=== PATIENT | male | born 1935 | race Caucasian/White ===

== ENCOUNTER 2023-11-20 21:43 | Inpatient (IN) | payer MEDICARE, SELFPAY ==
[2023-11-20] VITALS (9 sets, daily range): BP systolic 89–143; BP diastolic 43–62
[2023-11-20 19:15] LABS: Glucose - Point of Care 190 mg/dl (70-99)
[2023-11-20] MEDS: OFIRMEV 100 IV (19:16)
[2023-11-20 19:22] LABS: % Basophils 0.2 % (0-2); % Eosinophils 0.3 % (0-6); % Immature Granulocytes 0.4 % (0-0.5); % Lymphocytes 3.6 % (20.5-51.1); % Monocytes 5.3 % (1.7-9.3); % Neutrophils 90.2 % (42.2-75.2); Absolute Immature Granulocytes 0.1 10^3/uL (0-0.05); Absolute Lymphocytes 0.5 10^3/uL (1.2-3.4); Absolute Monocytes 0.7 10^3/uL (0.1-0.6); Absolute Neutrophils 12.6 10^3/uL (1.4-6.5); Hematocrit 39.7 % (39.0-52.0); Mean Corp Hgb Conc. 35.3 g/dL (33.0-37.0); Mean Corpuscular Hgb 32.6 pg (27.0-31.0); Mean Corpuscular Volume 92.5 fL (80.0-94.0); Mean Platelet Volume 9.9 fL (7.4-10.4); Nucleated Red Blood Cells % 0 % (-); Platelet Count 163 10^3/uL (130-400); Red Blood Cell Count 4.29 10^6/uL (4.70-6.10); Red Cell Dist. Width 12.9 % (11.5-14.5); Urine Albumin Negative (Neg - Trace); Urine Bilirubin Negative (Negative); Urine Character Clear (Clear); Urine Color Yellow; Urine Glucose 3+ (Negative); Urine Ketone Negative (Negative); Urine Leukocyte 2+ (Negative); Urine Nitrite Negative (Negative); Urine Occult Blood 2+ (Negative); Urine Urobilinogen Negative (Neg - 1+)
[2023-11-20 19:30] LABS: Urine Squamous Cell 0-2 /LPF (Few)
[2023-11-20 19:31] LABS: Urine Bacteria Many (Negative); Urine Red Blood Cell 16-20 /HPF (0-2); Urine White Cell >100 /HPF (0-5)
[2023-11-20 19:33] LABS: Lactic Acid 3.2 mmol/L (0.7-2.0)
[2023-11-20 19:36] LABS: ALT (SGPT) 19 U/L (0-50); AST (SGOT) 27 U/L (17-59); Albumin 4.1 g/dl (3.5-5.0); Alkaline Phosphatase 116 U/L (38-126); Blood Urea Nitrogen 33 mg/dl (9-20); Calcium 8.9 mg/dl (8.4-10.2); Carbon Dioxide 21 mmol/L (22-30); Chloride 103 mmol/L (98-107); Glucose 175 mg/dl (70-99); Potassium 4.5 mmol/L (3.5-5.1); Sodium 133 mmol/L (135-145); Total Bilirubin 1.1 mg/dl (0.2-1.3); Total Protein 6.7 g/dl (6.3-8.2); eGFR 58.89
[2023-11-20] MEDS: MAXIPIME 1000 MG IV (19:50)
--- NOTE | 2023-11-20 20:57 | ED.GENMED ---
History of Present Illness
General
Chief Complaint: Weakness
Time Seen by Provider: 11/20/23 18:48
Travel History
Have you had any contact with someone who has COVID-19?: Unable to Answer
Do you have any symptoms of coronavirus? Fever > 100 degrees, chills, cough, shortness of breath, sore throat, loss of taste or smell, muscle aches, or headache?: Unable to Answer
History of Present Illness
History of Present Illness:
88-year-old male with history of dementia, coronary disease, and insulin-dependent diabetes presents from [facility] for evaluation of fever and generalized weakness for the past few days. He apparently has a history of recurrent
UTIs. Prior medical care was in [place]. Patient cannot provide any history on arrival due to his dementia.
Review of Systems
Review of Systems
Allergies reviewed?: Yes
All Other Systems: ROS reviewed and negative except as documented in HPI and ROS
Phy Exam
Physical Exam
Physical Exam:
GEN: Ill-appearing, no immediate distress
HEENT: Oral mucosa moist, no scleral icterus
Cardiac: Tachycardic, regular
Lung: No respiratory distress, no tachypnea, lungs clear to auscultation bilaterally
MSK: No gross deformity or injuries
Skin: Good color, no pallor or jaundice, no rashes
Neuro: Alert, follows commands, disoriented to time and place
Psych: Calm, cooperative
Course
Orders/Labs/Results
Orders:
Orders
11/20/23 18:58
Electrocardiogram (*1) Urgent
Reason for Study: Other
Other Reason for Exam: Possible Sepsis
Cardiac Monitoring- Treatment ONCE
IV Insert/Care/Rem.- Treatment PRN
Straight cath- Treatment ONCE
O2 Therapy [RESP] Urgent
Titrate/Wean O2 to maintain O2 sat greater than (%): 93
Special Instructions: TO MAINTAIN CONTINUOUS O2 SATS > OR = 93%
Pulse Ox/cont/shift [RESP] Urgent
Quantity: 1
Special Instructions: CONTINUOUS
11/20/23 18:59
EKG- Treatment ONCE
11/20/23 19:02
Complete Blood Count/With Diff Urgent
Comprehensive Metabolic Panel Urgent
Lactic Acid Q4H
Comment: ON ICE, CANCEL 2ND ORDER IF FIRST LACTIC ACID LEVEL <2
Urinalysis Reflex To Culture Urgent
Date Specimen was Collected: 11/20/23
Time Specimen was Collected: 18:59
Urine Microscopic Reflex Cult Urgent
Blood Culture Q30M
ODETTE Source: Blood/Venous
Specimen Description:
Comment: FROM 2 SEPARATE SITES
Blood Culture Q30M
ODETTE Source: Blood/Venous
Specimen Description:
Comment: FROM 2 SEPARATE SITES
Urine Culture Urgent
ODETTE Source: U
Specimen Description:
Date Specimen was Collected: 11/20/23
Time Specimen was Collected: 18:59
11/20/23 19:09
Acetaminophen 1000MG/100Ml [Ofirmev] 1,000 mg in 100 ml IV ONCE
Acetaminophen IV Indication:: No GA & No Enteral Access
11/20/23 19:35
Cefepime HCl [Maxipime] 1,000 mg IV NOW STA
11/20/23 20:38
CR Chest - 2 Views Urgent
Comment:
Reason For Exam: sepsis
11/20/23 23:00
Lactic Acid Q4H
Comment: ON ICE, CANCEL 2ND ORDER IF FIRST LACTIC ACID LEVEL <2
Abnormal Lab Results
11/20/23 11/20/23
19:02 19:12
WBC 14.0 H 10^3/uL
(4.8-10.8)
RBC 4.29 L 10^6/uL
(4.70-6.10)
MCH 32.6 H pg
(27.0-31.0)
Abs Immat Gran (auto) 0.1 H 10^3/uL
(0-0.05)
Absolute Neuts (auto) 12.6 H 10^3/uL
(1.4-6.5)
Absolute Lymphs (auto) 0.5 L 10^3/uL
(1.2-3.4)
Absolute Monos (auto) 0.7 H 10^3/uL
(0.1-0.6)
Neutrophils % 90.2 H %
(42.2-75.2)
Lymphocytes % 3.6 L %
(20.5-51.1)
Sodium 133 L mmol/L
(135-145)
Carbon Dioxide 21 L mmol/L
(22-30)
BUN 33 H mg/dl
(9-20)
Glucose 175 H mg/dl
(70-99)
Lactic Acid 3.2 H mmol/L
(0.7-2.0)
Ur Occult Blood Reflex 2+ A
(Negative)
Leukocyte Esterase Rfl 2+ A
(Negative)
Urine RBC 16-20 A /HPF
(0-2)
Urine WBC (Reflex) >100 A /HPF
(0-5)
Urine Bacteria (Reflex) Many A
(Negative)
Urine Glucose 3+ A
(Negative)
POC Glucose 190 H mg/dl
(70-99)
11/20/23 19:02
11/20/23 19:02
Vital Signs
Initial and Last Documented VS:
Initial Vital Signs
Temp Pulse Resp BP Pulse Ox
104.7 F H 100 18 130/56 95
11/20/23 18:46 11/20/23 18:46 11/20/23 18:46 11/20/23 18:46 11/20/23 18:46
Last Documented Vital Signs
Temp Pulse Resp BP Pulse Ox
101.2 F H 98 23 133/60 89
11/20/23 19:53 11/20/23 19:45 11/20/23 19:45 11/20/23 19:00 11/20/23 19:45
MDM/Problems Addressed
MDM/Problems Addressed:
88-year-old male presents due to weakness, found to be febrile and tachycardic. Presentation most likely due to sepsis from UTI, given lactic acidosis he is high risk for complicated infection thus will admit for IV antibiotics and further
monitoring. Do not feel there is any indication for imaging given lack of renal failure to suggest urinary obstructive pathology
*Critical Care Note
Total Time (30-74mins, 75-104mins- exclusive of procedures): Not Applicable
ED Attending Note
-
Portions of this chart may have been created with voice recognition software.� Occasional wrong word or��sound alike� substitutions may have occurred due to the inherent limitations of voice recognition software.
Discharge Plan
Departure
Patient Disposition: Admit
Date of Disposition: 11/20/23
Time of Disposition: 21:08
Presentation/result/management discussed w/ accepting MD/DO: Hospitalist
Discharge Problem:
Urinary tract infection
Referrals:
Hannah Gold MD [Family Provider] -
Interventions
Interventions:
*Risk Screen - Suicide Last Done: 11/20/23 18:46
*General Assessment Last Done: 11/20/23 18:46
*Neglect/Abuse Screening Last Done: 11/20/23 18:46
ED- Cardiac Assessment Last Done: 11/20/23 19:24
ED- Neurological Assessment Last Done: 11/20/23 19:24
ED- Pulmonary Assessment Last Done: 11/20/23 19:24
--- NOTE | 2023-11-20 21:25 | HPS.HSE ---
Family Physician
-
Family Physician: Hannah Gold
Chief Complaint
-
fever, weakness
History of Present Illness
88-year-old male past medical history of dementia, coronary artery disease status post CABG, diabetes, recurrent UTIs presents from [facility] for fever and generalized weakness for the past 2 days. Patient denies any urinary symptoms, abdominal
pain, flank pain or back pain, or nausea or vomiting or chest pain or shortness of breath but he is a poor historian due to dementia. His mental status is at baseline currently. No history of kidney stones.
Patient has been hospitalized many times previously for urinary tract infections in [place].
No current smoking or alcohol use.
Medical History
Past Medical History
Past Medical History: Reports Other (dementia, coronary artery disease status post CABG, diabetes, recurrent UTIs)
Past Surgical History: Reports None
Social History
Tobacco: Non-smoker
Alcohol: None
Drug: None
Family History
Family History: Not pertinent
Allergies / Home Medications
Allergies reflects when Allergies were last updated in [employer].
Home Medications with original date entered in [employer]
Allergy/Medication List:
Allergies
Allergy/AdvReac Type Severity Reaction Status Date / Time
No Known Allergies Allergy Unverified 11/20/23 18:54
Home Medications
aspirin 81 mg tablet,delayed release 81 mg PO DAILY 11/20/23
atorvastatin 40 mg tablet 40 mg PO QPM 11/20/23
carvedilol 6.25 mg tablet 6.25 mg PO BID 11/20/23
cholecalciferol (vitamin D3) 50 mcg (2,000 unit) capsule 50 mcg PO DAILY 11/20/23
colesevelam 625 mg tablet 1,250 mg PO BID@0800,1700 11/20/23
empagliflozin 25 mg tablet (Jardiance) 25 mg PO DAILY 11/20/23
ezetimibe 10 mg tablet 10 mg PO DAILY 11/20/23
metformin 500 mg tablet,extended release 24 hr 1,500 mg PO DAILY 11/20/23
tamsulosin 0.4 mg capsule 0.4 mg PO DAILY 11/20/23
Review of Systems
-
History Source: Patient
A 12 point ROS was completed and negative except as noted: Yes
Constitutional: Reports No Symptoms
EENT: Reports No Symptoms
Respiratory: Reports No Symptoms
Cardiac: Reports No Symptoms
Abdomen/GI: Reports No Symptoms
: Reports No Symptoms
Musculoskeletal: Reports No Symptoms
Skin: Reports No Symptoms
Neurological: Reports No Symptoms
Endocrine: Reports No Symptoms
Hematologic/Lymphatic: Reports No Symptoms
Psych: Reports No Symptoms
Physical Exam
Vital Signs
Vital Signs
Temp Pulse Resp BP Pulse Ox
101.2 F H 67 21 99/49 94
11/20/23 19:53 11/20/23 21:00 11/20/23 21:00 11/20/23 21:00 11/20/23 21:00
Physical Exam
General: Well Developed, Well Nourished and No Apparent Distress
HEENT: NormoCephalic, Moist mucous membranes and Atraumatic
Respiratory: Clear
Cardiac: S1/S2 and Regular Rhythm; No Murmur or Rub
GI: Soft, Non Tender, Non Distended and Normal Bowel Sounds; No Organomegaly
Rectal: Deferred by Provider
Musculoskeletal: No Clubbing, No Cyanosis and No Edema
Skin: No Rash
Neuro: Nonfocal/grossly intact
Laboratory Results
-
11/20/23 19:02
11/20/23 19:02
Laboratory Results
Lactic Acid 3.2 mmol/L (0.7-2.0) H 11/20/23 19:02
Total Bilirubin 1.1 mg/dl (0.2-1.3) 11/20/23 19:02
AST 27 U/L (17-59) 11/20/23 19:02
ALT 19 U/L (0-50) 11/20/23 19:02
Alkaline Phosphatase 116 U/L (38-126) 11/20/23 19:02
Data Reviewed
-
Lab Data: Labs Reviewed by me
Old Records: Reviewed
Impression/Plan
-
IMPRESSION:
PLAN:
# Sepsis (fever, tachycardia, tachypnea, leukocytosis) secondary to urinary tract infection
# History of recurrent UTIs
-Blood pressure 90s systolic now
-Urinalysis clearly positive for infection
-IV fluids
-Check urine culture, blood cultures
-Cefepime
History of dementia
-baseline mental status
Coronary artery disease status post CABG
-Continue aspirin, statin
-Continue Coreg
Type 2 diabetes
-Hold metformin, Jardiance
-Insulin sliding scale
Hypercholesterolemia
-Continue statin, Zetia, colesevelam
BPH
-Continue tamsulosin
Full code
DVT prophylaxis�heparin
Diabetic diet
[2023-11-20] MEDS: NSS 1000 IV (23:23)
[2023-11-21] VITALS (14 sets, daily range): BP systolic 82–123; BP diastolic 34–69; PULSE 50; O2SAT 98; BMI 24.7
[2023-11-21] MEDS: NSS 500 IV (00:46)
[2023-11-21 01:12] LABS: Lactic Acid 1.4 mmol/L (0.7-2.0)
[2023-11-21] MEDS: MAXIPIME 2000 MG IV ×2 (01:27→13:24)
[2023-11-21] MEDS: STERILE WATER FOR INJECTION 10 ML IV ×2 (01:27→13:25)
[2023-11-21] MEDS: NSS 1000 IV ×3 (01:27→20:45)
--- NOTE | 2023-11-21 02:54 | PTCARENOTE ---
Received pt from ED RN. Pt is AAOx1 (self), confused/forgetful, [place]. Sinus monty/NSR on the monitor. On RA O2 sat 94%, lungs clear. BRPx1, attends in place for incont @ times. MASD in the groin. NS infusing @ 100 ml/hr. CHG bath provided. Son @
bedside. Pt is laying comfortable in bed with call aragon in reach.
[2023-11-21 05:31] LABS: % Basophils 0.3 % (0-2); % Eosinophils 0.4 % (0-6); % Immature Granulocytes 0.6 % (0-0.5); % Lymphocytes 6.7 % (20.5-51.1); % Monocytes 6.4 % (1.7-9.3); % Neutrophils 85.6 % (42.2-75.2); Absolute Immature Granulocytes 0.1 10^3/uL (0-0.05); Absolute Lymphocytes 0.7 10^3/uL (1.2-3.4); Absolute Monocytes 0.7 10^3/uL (0.1-0.6); Absolute Neutrophils 9.2 10^3/uL (1.4-6.5); Hematocrit 39.3 % (39.0-52.0); Hemoglobin 13.2 g/dL (13.0-18.0); Mean Corp Hgb Conc. 33.6 g/dL (33.0-37.0); Mean Corpuscular Hgb 32.4 pg (27.0-31.0); Mean Corpuscular Volume 96.3 fL (80.0-94.0); Mean Platelet Volume 9.9 fL (7.4-10.4); Nucleated Red Blood Cells % 0 % (-); Platelet Count 149 10^3/uL (130-400); Red Blood Cell Count 4.08 10^6/uL (4.70-6.10); Red Cell Dist. Width 13.1 % (11.5-14.5); White Blood Cell Count 10.8 10^3/uL (4.8-10.8)
[2023-11-21 05:54] LABS: ALT (SGPT) 18 U/L (0-50); AST (SGOT) 28 U/L (17-59); Albumin 3.2 g/dl (3.5-5.0); Alkaline Phosphatase 95 U/L (38-126); Blood Urea Nitrogen 31 mg/dl (9-20); Calcium 8.2 mg/dl (8.4-10.2); Carbon Dioxide 22 mmol/L (22-30); Chloride 106 mmol/L (98-107); Estimated Creatinine Clearance 46 ml/min; Glucose 136 mg/dl (70-99); Potassium 3.7 mmol/L (3.5-5.1); Sodium 136 mmol/L (135-145); Total Bilirubin 0.9 mg/dl (0.2-1.3); Total Protein 5.7 g/dl (6.3-8.2); eGFR > 60.00
--- NOTE | 2023-11-21 07:20 | W.PN.HOSP.TC ---
Today's Communication/Plan
-
Will await culture results
Has already responded to IV antibiotic and fluids
If leukocytosis remains stable and clinical status improved by tomorrow consideration for discharge plan on outpatient course of antibiotic
Can resume Jardiance continue to hold metformin for now
Assessment / Plan
Assessment / Plan
88-year-old male past medical history of dementia, coronary artery disease status post CABG, diabetes, recurrent UTIs presents from [facility] for fever and generalized weakness for the past 2 days.� Patient denies any urinary symptoms, abdominal
pain, flank pain or back pain, or nausea or vomiting or� chest pain or shortness of breath but he is a poor historian due to dementia.� His mental status is at baseline currently.� No history of kidney stones.
Patient has been hospitalized many times previously for urinary tract infections in [place].
No current smoking or alcohol use.
I obtained further history from son who slept in room overnight
# Sepsis (fever, tachycardia, tachypnea, leukocytosis, lactic acidosis) secondary to urinary tract infection
# History of recurrent UTIs
-Blood pressure 90s systolic now
-Urinalysis clearly positive for infection
-IV fluids/lactic acidosis resolved
-Check urine culture, blood cultures
-Cefepime
History of dementia
-baseline mental status
Coronary artery disease status post CABG
-Continue aspirin, statin
-Chest x-ray with cardiomegaly and increased pulmonary venous pressures presumed chronic
-Continue Coreg
Type 2 diabetes
-Hold metformin, Jardiance
-Insulin sliding scale
Hypercholesterolemia
-Continue statin, Zetia, colesevelam
BPH
-Continue tamsulosin
Full code
DVT prophylaxis�heparin
Diabetic diet
Anticipated Discharge: Within 24 hours
Subjective/Interval History
-
Date of Service: November 21, 2023
Return from sleep study requested overnight based on history of agitation during hospitalizations in the past but patient presently calm awake and alert no distress
Objective Data
-
Labs:
Laboratory Results
11/20/23 11/21/23
19:02 05:06
WBC 14.0 H 10.8
Hgb 14.0 13.2
Hct 39.7 39.3
Plt Count 163 149
Sodium 133 L 136
Potassium 4.5 3.7
Chloride 103 106
Carbon Dioxide 21 L 22
BUN 33 H 31 H
Creatinine 1.2 1.0
Glucose 175 H 136 H
Calcium 8.9 8.2 L
Total Bilirubin 1.1 0.9
AST 27 28
ALT 19 18
Alkaline Phosphatase 116 95
Vital Signs:
Vital Signs
Temp Pulse Resp BP Pulse Ox
98.2 F 60 20 113/52 96
11/21/23 03:15 11/21/23 06:01 11/21/23 06:01 11/21/23 06:01 11/21/23 06:01
I&O
11/20/23 11/21/23 11/22/23
06:59 06:59 06:59
Intake Total 1010 / 1010
Balance 1010 / 1010
Review of Systems
-
Unable to obtain full review of systems at this time due to: Dementia
History Source: Patient and Family
Constitutional: Reports No Symptoms
EENT: Reports No Symptoms Reported
Respiratory: Reports No Symptoms
Cardiac: Reports No Symptoms
Abdomen/GI: Reports No Symptoms
Genitourinary: Reports No Symptoms and UTI; Denies Dysuria, Frequency or Flank Pain
Physical Exam
-
General: Well Developed
HEENT: Normocephalic
Respiratory: Clear to Auscultation
Cardiac: Regular Rhythm
GI: Soft, Nontender and Nondistended
Skin: Warm
Neuro: Awake, Alert, Oriented and AO x 3
Psych: Calm
Data Reviewed
-
Total Time Spent with Patient (in minutes): 56
Diagnostic Radiology: Report Reviewed by me (Chest x-ray showed mild cardiomegaly with evidence of elevated pulmonary venous pressures possibly on a chronic basis)
Labs: Labs Reviewed by me (Lactic acidosis has resolved now 1.5/white count 10.8 from 14.0)
[2023-11-21 07:42] LABS: Glucose - Point of Care 148 mg/dl (70-99)
[2023-11-21] MEDS: NOVOLOG FLEXPEN-LOW RESISTANCE SC ×2 (08:33→17:40)
[2023-11-21] MEDS: TYLENOL 650 MG PO (08:41)
[2023-11-21 09:49] LABS: Glycohemoglobin (HgbA1c) 10.1 % (4.0-5.6)
[2023-11-21] MEDS: VITAMIN D3 (cholecalciferol) 50 MCG PO (09:49)
[2023-11-21] MEDS: ASPIR LOW (ENTERIC COATED) 81 MG PO (09:49)
[2023-11-21] MEDS: FLOMAX 0.400000000000000022 MG PO (09:51)
[2023-11-21] MEDS: COREG 6.25 MG PO (09:51)
[2023-11-21] MEDS: HEPARIN 5000 UNITS SC ×2 (09:51→20:44)
[2023-11-21] MEDS: ZETIA 10 MG PO (09:51)
[2023-11-21] MEDS: JARDIANCE 25 MG PO (11:21)
[2023-11-21 12:32] LABS: Glucose - Point of Care 243 mg/dl (70-99)
--- NOTE | 2023-11-21 13:14 | CM ---
Patient from [facility] facility with Hx dementia with Dx sepsis. Room air. Receiving IVF, IV cefepime. Per nurse assessment; A/O x1, forgetful.
Met with patient, son Prabhu (home ph only [phone]), grandson Austin and .
The patient stated he was [place] and did not participate in the conversation- his one hearing aide is not functioning.
Prbahu states patient is confused and forgetful at baseline.
Prabhu says has Alzheimers and also did not speak.
The patient resides with his in an apartment at [facility].
He has been independent in ADLs for bathing/dressing and Prabhu states he has poor hygiene.
The patient ambulates without any assistive devices.
The patient has been unsteady on his feet with no recent falls.
He fell 4x in 2022.
Patient's only DME is a motorized wheelchair, as well as hearing aide.
No prior VN or SNF.
Prabhu states that the patient was not taking his medications at home.
The family arranged a FILTER PRESS SUPERVISOR for med reminders which started the day before admission.
Home Services at [facility] is setting up a caregiver 2 hrs/day.
Prabhu and Austin have been watching the patient and at home.
Prabhu says they have a request with [facility] for the patient & to be moved to Assisted Living in a few weeks.
Advised son and grandson that the recommendation for patient's who are confused is 24 hr supervision.
Son tried to get patient's PCP Hannah Gold to agree to submit forms to DMV to revoke the patient's Drivers License however PCP declined to do that as the patient told her he did not agree to it. The battery in the patient's car is and they
are leaving it that way so he cannot drive.
Prabhu agrees to [facility] VN for SN & possibly PT/OT.
Message to Dr Pereira requesting PT/OT Evals.
Prabhu says that the son Yoshi is the point of contact for d/c plans going forward as Yoshi RODRIGES.
Met with [facility] who was here for on-site visit with patient/family.
Plan follow up after seen by PT/OT.
[2023-11-21] MEDS: NOVOLOG FLEXPEN-LOW RESISTANCE 2 UNITS SC (13:25)
[2023-11-21 17:33] LABS: Glucose - Point of Care 135 mg/dl (70-99)
[2023-11-21] MEDS: LIPITOR 40 MG PO (18:26)
[2023-11-21 21:26] LABS: Glucose - Point of Care 271 mg/dl (70-99)
--- NOTE | 2023-11-21 23:10 | PTCARENOTE ---
Pt being transferred to 4W room 425. Report given to MAHENDRA Mendez. All belongings sent with pt and son.
--- NOTE | 2023-11-22 00:10 | PTCARENOTE ---
Patient received from U AAOx1 @2345, confused. Patient ambulated from wheelchair to bed. No complaints at this time. Son at bedside. IVF infusing. Bed alarm set.
[2023-11-22] MEDS: MELATONIN 5 MG PO (00:17)
[2023-11-22] MEDS: MAXIPIME 2000 MG IV ×2 (01:02→13:31)
[2023-11-22] MEDS: STERILE WATER FOR INJECTION 10 ML IV ×2 (01:02→13:31)
[2023-11-22] MEDS: NSS 1000 IV (06:27)
[2023-11-22 07:30] VITALS: BP 119/55
[2023-11-22 08:54] LABS: Glucose - Point of Care 183 mg/dl (70-99)
[2023-11-22 08:54] LABS: Hematocrit 37.8 % (39.0-52.0); Hemoglobin 12.6 g/dL (13.0-18.0); Mean Corp Hgb Conc. 33.3 g/dL (33.0-37.0); Mean Corpuscular Hgb 32.6 pg (27.0-31.0); Mean Corpuscular Volume 97.7 fL (80.0-94.0); Mean Platelet Volume 10.2 fL (7.4-10.4); Platelet Count 141 10^3/uL (130-400); Red Blood Cell Count 3.87 10^6/uL (4.70-6.10); Red Cell Dist. Width 13.2 % (11.5-14.5); White Blood Cell Count 6.9 10^3/uL (4.8-10.8)
[2023-11-22] MEDS: NOVOLOG FLEXPEN-LOW RESISTANCE 1 UNITS SC ×3 (08:57→18:01)
[2023-11-22] MEDS: VITAMIN D3 (cholecalciferol) 50 MCG PO (08:57)
[2023-11-22] MEDS: FLOMAX 0.400000000000000022 MG PO (08:57)
[2023-11-22] MEDS: JARDIANCE 25 MG PO (08:57)
[2023-11-22] MEDS: ZETIA 10 MG PO (08:57)
[2023-11-22] MEDS: ASPIR LOW (ENTERIC COATED) 81 MG PO (08:57)
[2023-11-22] MEDS: HEPARIN 5000 UNITS SC ×2 (08:57→19:23)
--- NOTE | 2023-11-22 09:34 | PN.CDI ---
CDI
- -
CDI:
Physician Documentation Request
Admit Date: 11/20/23 21:43
Dear Doctor Randall,
Patient admitted for sepsis
11/20 Hospitalist PN: 'Has already responded to IV antibiotic and fluids...Blood pressure 90s systolic now'
11/20/23 23:23 Sodium chloride 1,000 mLs @ 1,000 mLs/hr IV BOLUS administered
11/21/23 00:46 Sodium chloride 500 mLs @ 1,000 mLs/hr IV BOLUS administered
Selected Entries
11/20/23
22:34 11/20/23
23:07 11/20/23
23:27
Blood pressure 99/43 89/46 94/44
Please clarify which of the following is the most likely etiology of the above symptoms and treatment rendered:
Septic shock, resolved
Hypotension - indicate type/etiology, such as idiopathic, neurogenic or orthostatic, post-procedural, postoperative, due to hemodialysis, chronic, drug induced (indicate drug), etc.
Hypotension - unknown type/etiology
Other
Use of terms such as suspected, likely, concern for, or probable (associated with a specific diagnosis that is being evaluated, monitored, or treated as if it exists) are acceptable and can be coded in the inpatient setting, when documented at the
time of discharge.
Thank you,
Rylie Stout RN, BSN
CDI Specialist
Available via [place] text
Please use your independent medical judgment in providing your response.
[2023-11-22 09:59] LABS: Blood Urea Nitrogen 25 mg/dl (9-20); Carbon Dioxide 21 mmol/L (22-30); Chloride 110 mmol/L (98-107); Estimated Creatinine Clearance 51 ml/min; Glucose 118 mg/dl (70-99); Potassium 3.7 mmol/L (3.5-5.1); Sodium 134 mmol/L (135-145); eGFR > 60.00
--- NOTE | 2023-11-22 10:39 | CM ---
Addendum entered by Ange Lopez 11/22/23 10:52:
Plan' [facility], accepted by [facility], for start of care 1-2 days post d/c.
[facility]

Original Note:
Patient seen bedside with mike Romero (POA)
Plan is home tomorrow with [facility]
Referral placed via [facility]. Mike Romero will be the contact center consultant p# [phone].
TC to [facility] [phone], transferred to [facility] , left message and requested call back.
IMM completed.
Plan: home with [facility]
--- NOTE | 2023-11-22 11:02 | W.PN.HOSP.TC ---
Addendum entered and electronically signed by Martin Pereira MD 11/22/23 16:17:
septic shock resolved
Original Note:
Today's Communication/Plan
-
Continue present course of antibiotic with cefepime still awaiting culture results
Will add metformin
Awaiting sensitivities and culture results prior to discharge presumptive discharge date will be tomorrow
Assessment / Plan
Assessment / Plan
88-year-old male past medical history of dementia, coronary artery disease status post CABG, diabetes, recurrent UTIs presents from [facility] for fever and generalized weakness for the past 2 days.� Patient denies any urinary symptoms, abdominal
pain, flank pain or back pain, or nausea or vomiting or� chest pain or shortness of breath but he is a poor historian due to dementia.� His mental status is at baseline currently.� No history of kidney stones.
Patient has been hospitalized many times previously for urinary tract infections in [place].
No current smoking or alcohol use.
I obtained further history from son who slept in room overnight
# Sepsis (fever, tachycardia, tachypnea, leukocytosis, lactic acidosis) secondary to urinary tract infection
# History of recurrent UTIs
-Blood pressure 90s systolic now
-Urinalysis clearly positive for infection
-IV fluids/lactic acidosis resolved
-Check urine culture, blood cultures
-Cefepime
History of dementia
-baseline mental status
-Patient's son relates the patient has been probably noncompliant with medications and trying to arrange at [facility] a better system for him for compliance
Coronary artery disease status post CABG
-Continue aspirin, statin
-Chest x-ray with cardiomegaly and increased pulmonary venous pressures presumed chronic
-Continue Coreg
Type 2 diabetes
-Hold metformin, Jardiance
-Insulin sliding scale
-I will restart metformin and Jardiance
Hypercholesterolemia
-Continue statin, Zetia, colesevelam
BPH
-Continue tamsulosin
Full code
DVT prophylaxis�heparin
Diabetic diet
Anticipated Discharge: Within 24 hours
Subjective/Interval History
-
Date of Service: November 22, 2023
No complaints doing well voiding on his own without difficulty no flank pain no respiratory issues
Objective Data
-
Labs:
Laboratory Results
11/22/23
07:45
WBC 6.9
Hgb 12.6 L
Hct 37.8 L
Plt Count 141
Sodium 134 L
Potassium 3.7
Chloride 110 H
Carbon Dioxide 21 L
BUN 25 H
Creatinine 0.9
Glucose 118 H
Calcium 8.0 L
Vital Signs:
Vital Signs
Temp Pulse Resp BP Pulse Ox
98.1 F 46 18 119/55 97
11/22/23 07:30 11/22/23 07:30 11/22/23 07:30 11/22/23 07:30 11/22/23 07:30
I&O
11/21/23 11/22/23 11/23/23
06:59 06:59 06:59
Intake Total 1010 / 1010 2660 / 2660
Balance 1010 / 1010 2660 / 2660
Review of Systems
-
Unable to obtain full review of systems at this time due to: Dementia
History Source: Patient and Family
Constitutional: Reports No Symptoms
Respiratory: Reports No Symptoms
Cardiac: Reports No Symptoms
Abdomen/GI: Reports No Symptoms
Physical Exam
-
General: Well Nourished and No Apparent Distress
HEENT: Normocephalic
Cardiac: Regular Rhythm
GI: Soft, Nontender and Nondistended
Skin: Warm and Dry
Neuro: Awake, Alert, Oriented and AO x 3
Psych: Calm and Confused
[2023-11-22 11:26] LABS: Glucose - Point of Care 195 mg/dl (70-99)
[2023-11-22 14:25] VITALS: BP 121/63; PULSE 58; O2SAT 97
--- NOTE | 2023-11-22 15:09 | PTCARENOTE ---
Notified provider of patient's positive UC for strep agalactiae.
[2023-11-22 15:30] VITALS: BP 107/43
[2023-11-22] MEDS: AMOXIL 500 MG PO ×2 (16:04→23:00)
[2023-11-22] MEDS: LIPITOR 40 MG PO (18:00)
[2023-11-22 18:02] LABS: Glucose - Point of Care 158 mg/dl (70-99)
[2023-11-22 20:59] LABS: Glucose - Point of Care 216 mg/dl (70-99)
[2023-11-22 23:11] VITALS: BP 114/58
[2023-11-23 08:10] VITALS: BP 137/64
[2023-11-23 08:34] LABS: Glucose - Point of Care 211 mg/dl (70-99)
[2023-11-23] MEDS: ASPIR LOW (ENTERIC COATED) 81 MG PO (08:47)
[2023-11-23] MEDS: FEOSOL 325 MG PO (08:47)
[2023-11-23] MEDS: VITAMIN D3 (cholecalciferol) 50 MCG PO (08:47)
[2023-11-23] MEDS: GLUCOPHAGE XR EXTENDED RELEASE 1500 MG PO (08:48)
[2023-11-23] MEDS: FLOMAX 0.400000000000000022 MG PO (08:48)
[2023-11-23] MEDS: ZETIA 10 MG PO (08:48)
[2023-11-23] MEDS: AMOXIL 500 MG PO (08:48)
[2023-11-23] MEDS: NOVOLOG FLEXPEN-LOW RESISTANCE 2 UNITS SC (08:49)
[2023-11-23] MEDS: HEPARIN 5000 UNITS SC (08:49)
[2023-11-23 10:17] LABS: Blood Urea Nitrogen 22 mg/dl (9-20); Calcium 8.5 mg/dl (8.4-10.2); Carbon Dioxide 27 mmol/L (22-30); Chloride 104 mmol/L (98-107); Estimated Creatinine Clearance 51 ml/min; Glucose 148 mg/dl (70-99); Potassium 3.6 mmol/L (3.5-5.1); Sodium 138 mmol/L (135-145); eGFR > 60.00
[2023-11-23 10:25] VITALS: BP 123/55
[2023-11-23] MEDS: JARDIANCE 25 MG PO (10:48)
--- NOTE | 2023-11-23 11:15 | CM ---
Patient seen at bedside, with patient son. IMM completed and signed form placed on chart. Patient son present declined VN citing all of the supports currently in place. CM to update [facility] at [facility]. Patient son to transport patient via car and no
other needs at this time. CM will continue to follow for discharge planning needs.
Plan; home with no needs at this time
[2023-11-23 11:26] LABS: Glucose - Point of Care 281 mg/dl (70-99)
[2023-11-23] MEDS: NOVOLOG FLEXPEN-LOW RESISTANCE SC (11:33)
[2023-11-23] MEDS: PREVNAR 20 0.5 ML IM (12:00)
--- NOTE | 2023-11-23 12:55 | W.DS.TRANS ---
DC Summary - Patrol Sergeant
-
Discharge Instructions:
Instructions:
Stand-Alone Forms:
Changes to Home Medications: No
Discharge Medications:
DC Medications w/original date entered in [employer]
aspirin 81 mg tablet,delayed release 81 mg PO DAILY Blood Clot Prevention/Tx 11/20/23
atorvastatin 40 mg tablet 40 mg PO DAILY High Cholesterol 11/20/23
cholecalciferol (vitamin D3) 50 mcg (2,000 unit) capsule 50 mcg PO DAILY Supplement 11/20/23
colesevelam 625 mg tablet 1,250 mg PO BID@0800,1700 High Cholesterol 11/20/23
empagliflozin 25 mg tablet (Jardiance) 25 mg PO DAILY Diabetes 11/20/23
ezetimibe 10 mg tablet 10 mg PO DAILY High Cholesterol 11/20/23
ferrous sulfate 325 mg (65 mg iron) tablet 325 mg PO DAILY Supplement 11/20/23
metformin 500 mg tablet,extended release 24 hr 1,500 mg PO DAILY Diabetes 11/20/23
tamsulosin 0.4 mg capsule 0.4 mg PO DAILY Urinary Issue 11/20/23
amoxicillin 500 mg capsule 500 mg PO BID #10 caps 11/23/23
Home Medication Changes
amoxicillin 500 mg capsule 500 mg PO BID #10 caps 11/23/23
Pending Results: No
Total time spent discharging patient (in min): 45
--- NOTE | 2023-11-23 12:56 | W.DCSUMMARY ---
Discharge Summary
Discharge Data
Date of Admission: 11/20/23
Date of Discharge: 11/23/23
-
Pending Results: No
Hospital Course
88-year-old male past medical history of dementia, coronary artery disease status post CABG, diabetes, recurrent UTIs presents from [facility] for fever and generalized weakness for the past 2 days.� Patient denies any urinary symptoms, abdominal
pain, flank pain or back pain, or nausea or vomiting or� chest pain or shortness of breath but he is a poor historian due to dementia.� His mental status is at baseline currently.� No history of kidney stones.
Patient has been hospitalized many times previously for urinary tract infections in [place].
He came to light and conversation with patient's son the patient's been noncompliant as he is not supervised with medication management and has missed days if not weeks of medication time including his blood sugar management with Jardiance and
metformin and this could certainly have led to his recent history of recurrent urinary tract infections this situation is good to be addressed by his son by getting a higher level of care on his return back to [facility] for more specific
supervision with med management.
This occasion he presented again with change in mental status with and met septic criteria with fever tachycardia tachypnea leukocytosis secondary to presumptive urinary tract infection with infected urine presentation. Leukocytosis resolvedAnd
prerenal azotemia manifested by elevated BUN, corrected to abnormality. culture eventually growing out strep Streptococcus agalactiae he was placed on empiric management with cefepime by the vp scientific that was transition eventually after obtaining
results of his cultures to amoxicillin at time of discharge he is now back to his baseline according to his son but he is made a point to make sure that the patient has felt better supervision with bed medical management and medication management.
On his return
I have discussed discharge plan with patient's son at bedside patient has been assessed by PT and OT and considered stable for discharge he will resume his dosing of Jardiance and metformin as prior/amoxicillin for ease of medication management will
be placed on amoxicillin 500 mg twice a day for next 5 days then discontinued
Discharge Plan
-
Patient Disposition: Usp/SNF
Discharge Diagnosis/Procedures: Toxic metabolic encephalopathy from UTI
septic shock
Type 2 diabetes mellitus
Streptococcal Acte had UTI
Condition: Good
Diet: Diabetic, Carb Controlled
Activity: As tolerated
Driving Restrictions: No driving
Referrals:
Hannah Gold MD [Family Provider] - in less than 1 week
Prescriptions:
New
amoxicillin 500 mg Capsule
500 mg PO BID Qty: 10 0RF
Continued
atorvastatin 40 mg tablet
40 mg PO DAILY
aspirin 81 mg tablet,delayed release (DR/EC)
81 mg PO DAILY
tamsulosin 0.4 mg capsule
0.4 mg PO DAILY
colesevelam 625 mg tablet
1,250 mg PO BID@0800,1700
metformin 500 mg tablet extended release 24 hr
1,500 mg PO DAILY
ezetimibe 10 mg tablet
10 mg PO DAILY
cholecalciferol (vitamin D3) 50 mcg (2,000 unit) capsule
50 mcg PO DAILY
Jardiance 25 mg tablet
25 mg PO DAILY
ferrous sulfate 325 mg (65 mg iron) Tablet
325 mg PO DAILY
Discharge Orders:
Discharge Patient (As Directed); Ordered 11/23/23
Ordered By: Martin Pereira
--- NOTE | 2023-11-23 13:03 | W.DCSUMMARY ---
Discharge Summary
Discharge Data
Date of Admission: 11/20/23
Date of Discharge: 11/23/23
-
Pending Results: No
Hospital Course
88-year-old male past medical history of dementia, coronary artery disease status post CABG, diabetes, recurrent UTIs presents from [facility] for fever and generalized weakness for the past 2 days.� Patient denies any urinary symptoms, abdominal
pain, flank pain or back pain, or nausea or vomiting or� chest pain or shortness of breath but he is a poor historian due to dementia.� His mental status is at baseline currently.� No history of kidney stones.
Patient has been hospitalized many times previously for urinary tract infections in [place].
No current smoking or alcohol use.
After conversation with patient's son it is apparent the patient been noncompliant with most of his medication management is not supervised/he has been in contact with [facility] and will not make a point to change in that and make an and adding
some more supervision of the medical management going forward and may explain his multiple admissions for urinary tract infections more recently
He presented with a hypertensive hypotension tachycardia and tachypnea consistent with septic shock responded to IV fluids he was placed on empiric antibiotic coverage with cefepime
Acute kidney injury resolved in the form of prerenal azotemia mostly as BUN was elevated over 30 and at time of discharge at 21 stable creatinine 0.8
Urine culture grew strep [place]
Antibiotic was changed to amoxicillin
Will be completed as outpatient over the next 5 days at 500 mg twice daily
Jardiance and metformin were briefly discontinued at time of presentation but resumed prior to discharge and will continue going forward again explained the importance of blood sugar management and medication compliance going forward to reduce
recurrent illness and hospitalizations
Discharge Plan
-
Patient Disposition: Usp/SNF
Discharge Diagnosis/Procedures: Toxic metabolic encephalopathy from UTI
septic shock
Type 2 diabetes mellitus
Streptococcal Acte had UTI
Condition: Good
Diet: Diabetic, Carb Controlled
Activity: As tolerated
Driving Restrictions: No driving
Referrals:
Asif,Hannah, MD [Family Provider] - in less than 1 week
Prescriptions:
New
amoxicillin 500 mg Capsule
500 mg PO BID Qty: 10 0RF
Continued
atorvastatin 40 mg tablet
40 mg PO DAILY
aspirin 81 mg tablet,delayed release (DR/EC)
81 mg PO DAILY
tamsulosin 0.4 mg capsule
0.4 mg PO DAILY
colesevelam 625 mg tablet
1,250 mg PO BID@0800,1700
metformin 500 mg tablet extended release 24 hr
1,500 mg PO DAILY
ezetimibe 10 mg tablet
10 mg PO DAILY
cholecalciferol (vitamin D3) 50 mcg (2,000 unit) capsule
50 mcg PO DAILY
Jardiance 25 mg tablet
25 mg PO DAILY
ferrous sulfate 325 mg (65 mg iron) Tablet
325 mg PO DAILY
Discharge Orders:
Discharge Patient (As Directed); Ordered 11/23/23
Ordered By: Martin Pereira
== END 2023-11-23 13:04 | disposition home or self-care (01) | DRG 871 ==
LOC: 4 WEST ACU 21:43
PROVIDERS: Physician Assistant; ADMITTING PHYSICIAN Hospitalist; ATTENDING PHYSICIAN Internal Medicine; EMERGENCY PHYSICIAN Student in an Organized Health Care Education/Training Program; FAMILY PHYSICIAN Internal Medicine Geriatric Medicine
PROC: 3E0234Z Introduction of Serum, Toxoid and Vaccine into Muscle, Percutaneous Approach (ICD-10-PCS; 2023-11-23)
DX: A40.1 Sepsis due to streptococcus, group B (principal); G92.8 Other toxic encephalopathy; R65.21 Severe sepsis with septic shock; N39.0 Urinary tract infection, site not specified; N17.9 Acute kidney failure, unspecified; F03.90 Unspecified dementia, unspecified severity, without behavioral disturbance, psychotic disturbance, mood disturbance, and anxiety; E11.9 Type 2 diabetes mellitus without complications; N40.0 Benign prostatic hyperplasia without lower urinary tract symptoms; E78.00 Pure hypercholesterolemia, unspecified; I25.10 Atherosclerotic heart disease of native coronary artery without angina pectoris; Z87.440 Personal history of urinary (tract) infections; Z95.1 Presence of aortocoronary bypass graft; Z79.82 Long term (current) use of aspirin; Z79.84 Long term (current) use of oral hypoglycemic drugs; Z91.199 Patient's noncompliance with other medical treatment and regimen due to unspecified reason; Z23 Encounter for immunization
CPT/HCPCS: 71046; 80048; 80053; 81003; 81015; 82962; 83036; 83605; 85025; 85027; 87040; 87077; 87086; 87147; 90677; 93005; 96374; 96375; 97116; 97162; 97166; 99285; G0009